=== PATIENT | female | born 1945 | race African-American/Black ===

== ENCOUNTER 2018-11-23 11:30 | Observation (INO) | payer OTHER ==
[2018-11-23 11:37] VITALS: BMI 36.8
--- NOTE | 2018-11-23 12:13 | PDOC ---
History of Present Illness - General History Source: Patient, EMS, Alf Records Exam Limitations: No Limitations - History of Present Illness Initial Comments: 11/23/18 11:50 The patient is a 73F with a PMH of HTN, DM, legally blind, and schizoaffective disorder who presents to the ER with complaints of a fall. Per [place] records, the patient had an unwitnessed fall. EMS states that she fell off her bed but they are unsure. Per [facility], a resident called in for help after seeing the patient fall. No other details could be obtained. The patient states that she does not remember what happened, only that "she fell". She denies hitting her head. She denies any CP, SOB, numbness, tingling, weakness, before, during, or after her fall. She denies any bony tenderness, neck pain, or back pain. She denies a cough and dysuria. <Ryland Desai - Last Filed: 11/23/18 16:31> <Linwood Napoles - Last Filed: 11/23/18 16:43> - General Chief Complaint: Injury Stated Complaint: FALL Time Seen by Provider: 11/23/18 11:36 Past History - Past Medical History COPD: No HTN: Yes Psychiatric Problems: Yes (schizoaffective disorder.) Other medical history: legally blind, - Suicide/Smoking/Psychosocial Hx Smoking History: Never smoked Have you smoked in the past 12 months: No Information on smoking cessation initiated: No Hx Alcohol Use: No Drug/Substance Use Hx: No <Ryland Desai - Last Filed: 11/23/18 16:31> <Linwood Napoles - Last Filed: 11/23/18 16:43> - Past Medical History Allergies/Adverse Reactions: Allergies Allergy/AdvReac Type Severity Reaction Status Date / Time No Known Allergies Allergy Verified 11/23/18 11:38 Review of Systems - Review of Systems Able to Perform ROS?: Yes Comments:: 11/23/18 12:13 GENERAL/CONSTITUTIONAL: Positive for fall. No fever or chills. No weakness. HEAD, EYES, EARS, NOSE AND THROAT: No change in vision. No ear pain or discharge. No sore throat. CARDIOVASCULAR: No chest pain, palpitations, or lightheadedness. RESPIRATORY: No cough, wheezing, shortness of breath, or hemoptysis. GASTROINTESTINAL: No nausea, vomiting, diarrhea, constipation, or abdominal pain. GENITOURINARY: No dysuria, frequency, hematuria, or change in urination. MUSCULOSKELETAL: No joint or muscle swelling or pain. No neck or back pain. SKIN: No rash or lesions. NEUROLOGIC: No headache, numbness, tingling, focal weakness, loss of consciousness, or change in strength/sensation. Is the patient limited Armenian proficient: No <Ryland Desai - Last Filed: 11/23/18 16:31> *Physical Exam - Vital Signs Last Vital Signs Temp Pulse Resp BP Pulse Ox 97 F L 93 H 16 134/90 98 11/23/18 11:33 11/23/18 11:33 11/23/18 11:11/23/18 11:33 11/23/18 11:33 - Physical Exam Comments: 11/23/18 12:22 GENERAL: Well developed, well nourished. Awake and alert. No acute distress. HEENT: Normocephalic, atraumatic. Hearing grossly normal. Moist mucous membranes. No conjunctival pallor. NECK: Supple. Full ROM. No JVD. CARDIOVASCULAR: Regular rate and rhythm. No murmurs, rubs, or gallops. PULMONARY: No evidence of respiratory distress. Lungs clear to auscultation bilaterally. No wheezing, rales or rhonchi. ABDOMINAL: Soft. Non-tender. Non-distended. No rebound or guarding. GENITOURINARY: No CVA tenderness bilaterally. MUSCULOSKELETAL: Normal range of motion at all joints. No bony deformities or tenderness. EXTREMITIES: No cyanosis. No clubbing. No edema. No calf tenderness or swelling. SKIN: Warm and dry. Normal capillary refill. No rashes. No jaundice. NEUROLOGICAL: Alert, awake, appropriate. Cranial nerves 2-12 grossly intact. Normal speech. PSYCHIATRIC: Cooperative. Good eye contact. Appropriate mood and affect. <Ryland Desai - Last Filed: 11/23/18 16:31> - Vital Signs Last Vital Signs Temp Pulse Resp BP Pulse Ox 97 F L 93 H 16 134/90 98 11/23/18 11:33 11/23/18 11:33 11/23/18 11:33 11/23/18 11:33 11/23/18 11:33 <Linwood Napoles - Last Filed: 11/23/18 16:43> Moderate Sedation - Procedure Monitoring Vital Signs: Procedure Monitoring Vital Signs Temperature 97 F L 11/23/18 11:33 Pulse Rate 93 H 11/23/18 11:33 Respiratory Rate 16 11/23/18 11:33 Blood Pressure 134/90 11/23/18 11:33 O2 Sat by Pulse Oximetry (%) 98 11/23/18 11:33 <Ryland Desai - Last Filed: 11/23/18 16:31> - Procedure Monitoring Vital Signs: Procedure Monitoring Vital Signs Temperature 97 F L 11/23/18 11:33 Pulse Rate 93 H 11/23/18 11:33 Respiratory Rate 16 11/23/18 11:33 Blood Pressure 134/90 11/23/18 11:33 O2 Sat by Pulse Oximetry (%) 98 11/23/18 11:33 <Linwood Napoles - Last Filed: 11/23/18 16:43> ED Treatment Course - LABORATORY CBC & Chemistry Diagram: 11/23/18 12:00 11/23/18 11:43 - RADIOLOGY Radiology Studies Ordered: Category Date Time Status CERVICAL SPINE CT W/O CONTR [CT] Stat CT Scan 11/23/18 11:[address] WITHOUT CONTRAST [CT] Stat CT Scan 11/23/18 11:43 Ordered CHEST X-RAY PORTABLE* [RAD] Stat Radiology 11/23/18 11:43 Ordered <Ryland Desai - Last Filed: 11/23/18 16:31> - LABORATORY CBC & Chemistry Diagram: 11/23/18 12:00 11/23/18 11:43 - ADDITIONAL ORDERS Additional order review: Laboratory Results 11/23/18 11/23/18 11/23/18 15:51 15:00 14:30 PT with INR INR Sodium Potassium Chloride Carbon Dioxide Anion Gap BUN Creatinine Creat Clearance w eGFR POC Glucometer 58 80 Random Glucose Calcium Total Bilirubin AST ALT Alkaline Phosphatase Creatine Kinase Troponin I Total Protein Albumin Urine Color Yellow Urine Appearance Clear Urine pH 5.0 Ur Specific [place] 1.017 Urine Protein Negative Urine Glucose (UA) Negative Urine Ketones Negative Urine Blood Negative Urine Nitrite Negative Urine Bilirubin Negative Urine Urobilinogen 2.0 H Ur Leukocyte Esterase Negative 11/23/18 11/23/18 11/23/18 13:11 12:00 11:43 PT with INR 11.70 INR 0.99 Sodium 140 Potassium 4.6 Chloride 108 H Carbon Dioxide 27 Anion Gap 6 L BUN 27 H Creatinine 1.4 H Creat Clearance w eGFR 36.86 POC Glucometer 44 Random Glucose 39 L* Calcium 8.1 L Total Bilirubin 0.2 AST 12 L ALT 9 L Alkaline Phosphatase 63 Creatine Kinase 106 Troponin I < 0.02 Total Protein 6.7 Albumin 3.1 L Urine Color Urine Appearance Urine pH Ur Specific [place] Urine Protein Urine Glucose (UA) Urine Ketones Urine Blood Urine Nitrite Urine Bilirubin Urine Urobilinogen Ur Leukocyte Esterase 11/23/18 11/23/18 11/23/18 15:51 14:30 13:11 RBC MCV MCHC RDW MPV Neutrophils % Lymphocytes % Monocytes % Eosinophils % Basophils % POC Glucometer 58 80 44 11/23/18 12:00 RBC 3.95 MCV 80.4 MCHC 32.9 RDW 15.5 MPV 9.4 Neutrophils % 67.8 Lymphocytes % 21.2 Monocytes % 9.8 Eosinophils % 0.9 Basophils % 0.3 POC Glucometer - RADIOLOGY Radiology Studies Ordered: Category Date Time Status PELVIS [RAD] Stat Radiology 11/23/18 12:10 Taken - Medications Given in the ED: ED Medications Discontinued Medications Generic Name Dose Route Start Last Admin Trade Name Raz PRN Reason Stop Dose Admin Octreotide Acetate 50 mcg 11/23/18 14:55 11/23/18 14:59 Sandostatin - SQ 11/23/18 14:56 50 mcg ONCE ONE Administration <Linwood Napoles - Last Filed: 11/23/18 16:43> Medical Decision Making - Medical Decision Making 11/23/18 12:22 The patient is a 73F with a PMH of HTN, DM, legally blind who presents after having a fall witnessed by a resident without any other details. Concern for syncope vs mechanical fall. Pending labs and imaging including CTH and CT neck. 11/23/18 14:20 FS 40. Gave D50. CTH and CT neck negative. CXR negative. Will microblog for admission. 11/23/18 16:31 Attending admitted patient. <Ryland Desai - Last Filed: 11/23/18 16:31> *DC/Admit/Observation/Transfer - Discharge Dispostion Decision to Admit order: Yes <Ryland Desai - Last Filed: 11/23/18 16:31> - Discharge Dispostion Decision to Admit order: Yes <Linwood Napoles - Last Filed: 11/23/18 16:43> Diagnosis at time of Disposition: Syncope and collapse, Fall, Hypoglycemia - Discharge Dispostion Condition at time of disposition: Stable
[2018-11-23 12:29] LABS: BASO % 0.3 % (0-2.0); EOS % 0.9 % (0-4.5); HEMATOCRIT 31.7 % (32.4-45.2); HEMOGLOBIN 10.4 GM/dL (10.7-15.3); LYMPH % 21.2 % (8-40); MCH 26.5 pg (25.7-33.7); MCHC 32.9 g/dl (32.0-36.0); MEAN CELL VOLUME 80.4 fl (80-96); MEAN PLT VOLUME 9.4 fl (7.5-11.1); MONO % 9.8 % (3.8-10.2); NEUT % 67.8 % (42.8-82.8); PLATELET COUNT 213 K/MM3 (134-434); RBC 3.95 M/mm3 (3.60-5.2); RDW 15.5 % (11.6-15.6); WHITE BLOOD COUNT 6.6 K/mm3 (4.0-10.0)
[2018-11-23 12:41] LABS: INR 0.99 (0.83-1.09); PROTHROMBIN TIME (PATIENT) 11.7 SEC (9.7-13.0)
[2018-11-23 12:48] LABS: ALBUMIN 3.1 g/dl (3.4-5.0); ALK PHOS 63 U/L (45-117); ANION GAP 6 MMOL/L (8-16); BILIRUBIN,TOTAL 0.2 mg/dL (0.2-1); BLOOD UREA NITROGEN 27 mg/dL (7-18); CALCIUM 8.1 mg/dL (8.5-10.1); CHLORIDE 108 mmol/L (98-107); CO2 27 mmol/L (21-32); CREATININE 1.4 mg/dL (0.55-1.3); POTASSIUM 4.6 mmol/L (3.5-5.1); SGOT/AST 12 U/L (15-37); SGPT/ALT 9 U/L (13-61); SODIUM 140 mmol/L (136-145); TOT PROT 6.7 g/dl (6.4-8.2)
[2018-11-23 12:54] LABS: GLUCOSE,RANDOM 39 mg/dL (74-106)
[2018-11-23] MEDS ORDERED: DEXTROSE 50%-WATER 25 GM/50 ML DISP.SYRIN ONE (13:12)
[2018-11-23] MEDS ORDERED: OCTREOTIDE ACETATE 50 MCG/1 ML - 1 ML VIAL SQ ONE (14:55)
--- NOTE | 2018-11-23 14:55 | PDOC ---
Attending Attestation - Resident Resident Name: Ryland Desai - ED Attending Attestation I have performed the following: I have examined & evaluated the patient, The case was reviewed & discussed with the resident, I agree w/resident's findings & plan, Exceptions are as noted - HPI HPI: 11/23/18 14:47 The patient is a 73 year old female, with a significant PMH of HTN, DM on metformin, glipezide and pioglitazone, legal blindness, dementia, schizoaffective, who presents to the emergency department s/p fall. The patient was found by another assisted resident who called for help. As per EMS, when they arrived the patient was already up from the floor and sitting. Patient does not recall the cause of the fall. Staff does not know how she fell. Denies LOC. Denies head trauma. Patient denies any complaints. The patient denies chest pain, shortness of breath, headache and dizziness. Denies fever, chills, nausea, vomit, diarrhea and constipation. Denies dysuria, frequency, urgency and hematuria. Allergies: NKA - Physicial Exam PE: 11/23/18 14:49 GENERAL: Awake, alert, and fully oriented, in no acute distress HEAD: No signs of trauma EYES: PERRLA, EOMI, sclera anicteric, conjunctiva clear ENT: MMM NECK: Normal ROM, supple, no lymphadenopathy, JVD, or masses LUNGS: Breath sounds equal, clear to auscultation bilaterally. No wheezes, and no crackles HEART: Regular rate and rhythm, normal S1 and S2, no murmurs, rubs or gallops ABDOMEN: Soft, nontender, normoactive bowel sounds. No guarding, no rebound. No masses EXTREMITIES: Normal range of motion, no edema. No cords, erythema, or tenderness. WWP BACK: no midline cervical, thoracic, or lumbar ttp NEUROLOGICAL: Normal speech, cranial nerves intact, equal strength and sesnation b/l SKIN: Warm, Dry, normal turgor, no rashes or lesions noted. - Medical Decision Making 11/23/18 16:11 73yo F with MMP including DM on multiple oral medications - metformin, pioglitizone, and glipezide - presents to the ED with unwitnessed fall. Pt does not remember how she fells. Trauma w/u negative thus far. More concerning is that pt has had persistent hypoglycemia despite amp of D50. Pt possibly may have taekn accidental extra dose of glipezide. As such, pt drinking juice, octreotide SQ given, and D5 gtt started. Pt admitted to m/s floor to Dr. Garibay , case has been discussed with him. FS Q2h ordered. Dr. Garibay at bedside evaluating pt. Case discussed in detail with admitting physician including history, physical exam and ancillary studies. Admitting physician has assumed care for the patient, will follow all pending diagnostics and will complete the evaluation and treatment. Heart Score/ECG Review #1 11/23/18 16:43 Twelve-lead EKG was performed and reviewed by me. Normal sinus rhythm, rate 82. Normal axis and intervals. No ST elevations or T-wave inversions.
[2018-11-23] MEDS ORDERED: DEXTROSE 5%-LACTATED RINGERS 1,000 ML IV SCH (15:00)
--- NOTE | 2018-11-23 15:03 | EKG ---
Test Reason : Blood Pressure : / mmHG Vent. Rate : 082 BPM Atrial Rate : 082 BPM P-R Int : 190 ms QRS Dur : 070 ms QT Int : 394 ms P-R-T Axes : 046 011 044 degrees QTc Int : 460 ms NORMAL SINUS RHYTHM LOW VOLTAGE QRS INFERIOR INFARCT , AGE UNDETERMINED CANNOT RULE OUT ANTERIOR INFARCT , AGE UNDETERMINED ABNORMAL ECG NO PREVIOUS ECGS AVAILABLE Confirmed by BRYANNA BOLDEN MD ([id number]) on 11/23/2018 3:03:04 PM Referred By: Confirmed By:BRYANNA BOLDEN MD
[2018-11-23 15:33] LABS: URINE APPEARANCE CLEAR; URINE BILIRUBIN NEGATIVE (<2.0 mg/dL); URINE COLOR YELLOW; URINE GLUCOSE (UA) NEGATIVE (NEGATIVE); URINE KETONE NEGATIVE (NEGATIVE); URINE LEUK ESTERASE NEGATIVE (NEGATIVE); URINE NITRITE NEGATIVE (NEGATIVE); URINE PROTEIN NEGATIVE (NEGATIVE)
--- NOTE | 2018-11-23 16:27 | HP ---
Admitting History and Physical - Primary Care Physician PCP: Galen Lundberg - Admission Chief Complaint: I fell History of Present Illness: Ms Anand is a very pleasant 73 year old female who comes in with fall. She says she was walking today and she ran into someone and fell. She says that she did not hit her head or pass out. She said otherwise she is feeling fine, mainly she is feeling hungry. She denies fevers, chills, lightheadedness, dizziness, passing out, chest pain, shortness of breath, nausea, vomiting, diarrhea, constipation, difficulty or pain on urination, or swelling. History Source: Patient Limitations to Obtaining History: Dementia - Past Medical History Cardiovascular: Yes: HTN Psych: Yes: Other (schizoaffective disorder) Endocrine: Yes: Diabetes Mellitus Additional Past Medical History: legally blind - Past Surgical History Past Surgical History: Yes: None - Smoking History Smoking history: Never smoked Have you smoked in the past 12 months: No - Alcohol/Substance Use Hx Alcohol Use: No History of Substance Use: reports: None - Social History Usual Living Arrangement: Yes: Alf ADL: Support Services History of Recent Travel: No Home Medications - Allergies Allergies/Adverse Reactions: Allergies Allergy/AdvReac Type Severity Reaction Status Date / Time No Known Allergies Allergy Verified 11/23/18 11:38 - Home Medications Home Medications (free text): 1. Cogentin 2mg daily. 2. Tenormin 50mg daily. 3. Protonix 20mg daily. 4. Lisinopril 10mg daily. 5. Aspirin 81mg daily. 6. Feosol 325mg daily. 7. Prolixin 20mg bid. 8. Depakote DR 250mg bid. 9. Metformin 1000mg bid. 10. Zocor 20mg qhs. 11. Gabapentin 100mg qhs. 12. Pioglitazone 15mg daily. 13. Systane 1 drop OU bid. 14. Latanoprost 0.005 1 drop OU qpm Family Disease History - Family Disease History Family History: Denies Review of Systems Findings/Remarks: Full review of systems obtained, as per HPI and otherwise negative. Physical Examination Vital Signs: Vital Signs Temperature 36.1 C L 11/23/18 11:33 Pulse Rate 93 H 11/23/18 11:33 Respiratory Rate 16 11/23/18 11:33 Blood Pressure 134/90 11/23/18 11:33 O2 Sat by Pulse Oximetry (%) 98 11/23/18 11:33 Constitutional: Yes: No Distress, Calm, Obese HENT: Yes: Atraumatic, Normocephalic Cardiovascular: Yes: Regular Rate and Rhythm. No: Gallop, Murmur, Rub Respiratory: Yes: Regular, CTA Bilaterally. No: Rales, Rhonchi, Wheezes Gastrointestinal: Yes: Normal Bowel Sounds, Soft. No: Distention, Tenderness Extremities: Yes: WNL Edema: No Labs: CBC, BMP 11/23/18 12:00 11/23/18 11:43 Imaging - Results Chest X-ray: Report Reviewed, Image Reviewed Cat Scan: Report Reviewed Problem List - Problems (1) Hypoglycemia Assessment/Plan: -suspect secondary to accidentally taking extra diabetic medication -hold all hypoglycemics -D5 NS IV @ 100mL/hr -regular diet -q2 glucose check, if falls low can give 1 amp of D50 -patient currently asymptomatic Code(s): E16.2 - HYPOGLYCEMIA, UNSPECIFIED (2) Diabetes Assessment/Plan: -on metformin and actos as an outpatient -hold currently since hypoglycemic -regular diet -currently on D5 NS as well Code(s): E11.9 - TYPE 2 DIABETES MELLITUS WITHOUT COMPLICATIONS (3) Schizoaffective disorder Assessment/Plan: -stable -continue home regimen Code(s): F25.9 - SCHIZOAFFECTIVE DISORDER, UNSPECIFIED Qualifiers: Schizoaffective disorder type: other Qualified Code(s): F25.8 - Other schizoaffective disorders (4) Fall Assessment/Plan: -mechanical -PT consult Code(s): W19.XXXA - UNSPECIFIED FALL, INITIAL ENCOUNTER (5) HLD (hyperlipidemia) Assessment/Plan: -continue statin Code(s): E78.5 - HYPERLIPIDEMIA, UNSPECIFIED (6) HTN (hypertension) Assessment/Plan: -controlled -continue home regimen Code(s): I10 - ESSENTIAL (PRIMARY) HYPERTENSION (7) Blind Assessment/Plan: -continue latanoprost Code(s): H54.7 - UNSPECIFIED VISUAL LOSS
[2018-11-23] MEDS ORDERED: ACETAMINOPHEN 325 MG TABLET (FP) PO PRN (16:35)
[2018-11-23] MEDS ORDERED: DEXTROSE 5%-NORMAL SALINE 1,000 ML IV SCH (16:45)
[2018-11-23] MEDS ORDERED: PT OWN MED DRAWER 7, Y5N ONE (20:39)
[2018-11-23] MEDS ORDERED: DIVALPROEX NA *ER* EXTEND REL 250 MG TABLET.SA PO SCH (22:00)
[2018-11-23] MEDS ORDERED: GABAPENTIN 100 MG CAPSULE (FP) PO SCH (22:00)
[2018-11-23] MEDS ORDERED: ATORVASTATIN CA 20 MG TABLET (FP) PO SCH (22:00)
[2018-11-24] MEDS ORDERED: FERROUS SO4 325 MG TABLET (FP) PO SCH (08:00)
[2018-11-24] MEDS ORDERED: PT OWN MED DRAWER 7, Y5N ONE (08:31)
[2018-11-24 08:33] LABS: BASO % 0.3 % (0-2.0); EOS % 1.3 % (0-4.5); HEMATOCRIT 32.2 % (32.4-45.2); HEMOGLOBIN 10.8 GM/dL (10.7-15.3); LYMPH % 21.8 % (8-40); MCH 27.1 pg (25.7-33.7); MCHC 33.6 g/dl (32.0-36.0); MEAN CELL VOLUME 80.6 fl (80-96); MEAN PLT VOLUME 9.9 fl (7.5-11.1); MONO % 9.1 % (3.8-10.2); NEUT % 67.5 % (42.8-82.8); PLATELET COUNT 222 K/MM3 (134-434); RDW 15.4 % (11.6-15.6); WHITE BLOOD COUNT 5.8 K/mm3 (4.0-10.0)
[2018-11-24 09:13] LABS: ANION GAP 7 MMOL/L (8-16); BLOOD UREA NITROGEN 20 mg/dL (7-18); CALCIUM 8.9 mg/dL (8.5-10.1); CHLORIDE 106 mmol/L (98-107); CO2 27 mmol/L (21-32); CREATININE 0.9 mg/dL (0.55-1.3); GLUCOSE,RANDOM 136 mg/dL (74-106); MAGNESIUM 1.4 mg/dL (1.8-2.4); SODIUM 140 mmol/L (136-145)
[2018-11-24] MEDS ORDERED: LISINOPRIL 10 MG TABLET (FP) PO SCH (10:00)
[2018-11-24] MEDS ORDERED: ATENOLOL 50 MG TABLET (FP) PO SCH (10:00)
[2018-11-24] MEDS ORDERED: ASPIRIN COATED 81 MG TABLET.EC PO SCH (10:00)
[2018-11-24] MEDS ORDERED: BENZTROPINE MESYLATE 2 MG TABLET PO SCH (10:00)
[2018-11-24] MEDS ORDERED: PANTOPRAZOLE 20 MG TABLET (FP) PO SCH (10:00)
[2018-11-24] MEDS ORDERED: DIVALPROEX SODIUM 250 MG TABLET E.C. PO SCH (11:30)
[2018-11-24 13:18] VITALS: BP 150/86; PULSE 69; TEMP 98.8
--- NOTE | 2018-11-24 16:13 | DS ---
Physical Examination Vital Signs: Vital Signs Temperature 37.1 C 11/24/18 13:16 Pulse Rate 69 11/24/18 13:16 Respiratory Rate 20 11/24/18 13:16 Blood Pressure 150/86 11/24/18 13:16 O2 Sat by Pulse Oximetry (%) 98 11/24/18 00:36 Constitutional: Yes: No Distress, Calm, Obese Cardiovascular: Yes: Regular Rate and Rhythm. No: Gallop, Murmur, Rub Respiratory: Yes: Regular, CTA Bilaterally. No: Rales, Rhonchi, Wheezes Gastrointestinal: Yes: Normal Bowel Sounds, Soft. No: Distention, Tenderness Extremities: Yes: WNL Edema: No Labs: CBC, BMP 11/24/18 07:00 11/24/18 07:00 Discharge Summary Reason For Visit: HYPOGLYCEMIA,SYNCOPE & COLLAPSE,FALL Hospital Course: Ms Anand is a very pleasant 73 year old female who came in with hypoglycemia. She was admitted to med/surg under observation. Her diabetic medications were held. She was placed on D5NS and a regular diet. Her glucose increased. The IVF was stopped and she maintained her glucose without becoming hypoglycemic. She is safe for discharge back to [facility]. Recommend stopping her actos and re-evaluating as an outpatient if it needs to be restarted. 31 minutes spent in preparation of this discharge. Condition: Stable - Instructions Diet, Activity, Other Instructions: resume previous diet and activity. Will discontinue actos, defer to PCP when safe to restart. Referrals: Galen Lundberg [Non Staff, Medical] - 1 Week Disposition: HOME - Home Medications Comprehensive Discharge Medication List: Ambulatory Orders ASA - 81 PO DAILY 11/24/18 Aspirin Coated [Ecotrin -] 81 mg PO DAILY tablet.ec 11/24/18 Atenolol [Tenormin -] 50 mg PO DAILY tablet 11/24/18 Benztropine Mesylate [Cogentin -] 2 mg PO DAILY tablet 11/24/18 Cogentin 2 PO DAILY 11/24/18 Divalproex [Depakote -] 250 mg PO BID tablet.ec 11/24/18 Feosol 325 PO DAILY 11/24/18 Ferrous Sulfate [Feosol] 325 mg PO DAILY@0800 ud 11/24/18 Gabapentin 100 PO HS 11/24/18 Gabapentin [Neurontin -] 100 mg PO HS capsule 11/24/18 Glipizide 5 PO DAILY 11/24/18 Latanoprost 1 drop OP HS 11/24/18 Lisinopril [Prinivil] 10 mg PO DAILY tablet 11/24/18 Metformin HCl 1,000 PO BID 11/24/18 Pantoprazole Sodium [Protonix -] 20 mg PO DAILY tablet.ec 11/24/18 Prolixin - 20 PO BID 11/24/18 Restoril 10 PO DAILY 11/24/18 Systane 0.3-0.4% Eye Drop 1 drop OP BID 11/24/18 Tenormin 50 PO DAILY 11/24/18 Zocor 20 PO HS 11/24/18
[2018-11-24] MEDS ORDERED: DIVALPROEX NA *ER* EXTEND REL 250 MG TABLET.SA PO SCH (22:00)
== END 2018-11-24 15:11 ==
LOC: JER 11:30 → JERBED 15:12 → J7W 19:07
PROVIDERS: ADMIT Internal Medicine; ATTEND Internal Medicine
PROC: 3E013GC Introduction of Other Therapeutic Substance into Subcutaneous Tissue, Percutaneous Approach (ICD-10-PCS; principal; 2018-11-23)
PROC: 3E0337Z Introduction of Electrolytic and Water Balance Substance into Peripheral Vein, Percutaneous Approach (ICD-10-PCS; 2018-11-23)
DX: R55 Syncope and collapse (principal); E11.65 Type 2 diabetes mellitus with hyperglycemia; I10 Essential (primary) hypertension; H54.8 Legal blindness, as defined in USA; F25.9 Schizoaffective disorder, unspecified; Z79.84 Long term (current) use of oral hypoglycemic drugs; F03.90 Unspecified dementia, unspecified severity, without behavioral disturbance, psychotic disturbance, mood disturbance, and anxiety; W19.XXXA Unspecified fall, initial encounter; Z91.81 History of falling; Y93.9 Activity, unspecified; Y92.122 Bedroom in nursing home as the place of occurrence of the external cause
CPT/HCPCS: 36415; 70450-TC; 71045-TC-FY; 72125-TC; 72170-TC-FY; 80048; 80053; 81003; 82550; 82962; 83735; 84100; 84484; 85025; 85610; 87086; 93005; 93010; 96372; 99282-25; G0378